=== PATIENT | male | born 1950 | race Caucasian/White ===

== ENCOUNTER 2016-04-25 21:05 | Emergency (ER) | payer BC ==
[~2016-04-25] VITALS: Ht 175.3 cm; Wt 87.3 kg
[~2016-04-25 21:05] MED LIST: COZAAR 50MG50 MG/TAB PO; LIPITOR20 MG PO; NAPROSYN500 MG PO; NORCO 325 MG-7.1 TAB PO; PRILOSEC10 MG PO; VOLTAREN SR25 MG/TAB PO; XARELTO15 MG PO; ZOCOR40 MG PO
[2016-04-25 21:07] VITALS: TEMP 98.5
[2016-04-25] MEDS ORDERED: ASPIRIN 81M81 MG/TA2 PO (21:10)
[2016-04-25] MEDS ORDERED: FLEXERIL 1010 MG/TAB PO (21:11)
[2016-04-25 22:29] LABS: BASO % 0.9 % (0.0-2.0); EOS # 0.2 (0.0-0.7); EOS % 3.6 % (0-4.0); GRAN # 2.5 (1.4-6.5); GRAN % 56.6 % (42.2-75.2); HEMATOCRIT 42.8 % (42.0-52.0); HEMOGLOBIN 14.9 g/dl (13.5-18.0); LYMPH # 1.3 (1.2-3.4); LYMPH % 29.4 % (20.0-51.0); MEAN CELL VOLUME 89 fl (80.0-100.0); MEAN CORPUSCULAR HEMOGLOBIN 31 pg (27.0-31.0); MEAN CORPUSCULAR HGB CONC 35 g/dl (33.0-37.0); MEAN PLATELET VOLUME 9.9 fl (7.4-10.4); MONO # 0.4 (0.1-0.6); MONO % 8.6 % (1.7-9.3); PLATELET COUNT 143 K/mm3 (130-400); RED BLOOD COUNT 4.82 M/mm3 (4.20-5.60); REDCELL DISTRIBUTION WIDTH-CV 12.4 % (11.5-14.5); WHITE BLOOD COUNT 4.4 K/mm3 (4.8-10.8)
[2016-04-25 22:34] LABS: INR 1.1 (0.8-3.0)
[2016-04-25 22:41] LABS: ADJUSTED CALCIUM 9.1 mg/dL (8.4-10.2); ALBUMIN 4.1 gm/dL (3.5-5.0); BILIRUBIN,TOTAL 1.3 mg/dL (0.0-1.0); CALCIUM 9.2 mg/dL (8.4-10.2); CREATININE, serum 0.96 mg/dL (0.66-1.25); POTASSIUM 3.7 mmol/L (3.4-5.0); TOTAL PROTEIN 7.3 gm/dL (6.4-8.2)
[2016-04-25 23:35] LABS: PH 5 (5-8); SQUAMOUS EPITHELIAL None Seen /hpf; URINE APPEARANCE Clear; URINE BACTERIA None Seen /hpf; URINE BILIRUBIN Negative (NEGATIVE); URINE BLOOD 2+ (NEGATIVE); URINE COLOR Yellow; URINE GLUCOSE Negative (NEGATIVE); URINE KETONE Trace (NEGATIVE); URINE RBC 0-2 /hpf; URINE UROBILINOGEN Negative (NEGATIVE); URINE WBC 0-2 /hpf
[2016-04-26 00:26] VITALS: BP 145/94; PULSE 77
[2016-04-26] MEDS ORDERED: ASPIRIN 32325 MG/TAB PO (10:04)
== END 2016-04-26 00:34 | disposition home or self-care (01) ==
LOC: COL.ER 21:05
PROVIDERS: Emergency Medicine
DX: K92.2 Gastrointestinal hemorrhage, unspecified (principal)
CPT/HCPCS: J7030

== ENCOUNTER 2016-04-26 09:31 | Day surgery (SDC) | payer BC ==
[~2016-04-26] VITALS: Ht 175.3 cm; Wt 89.7 kg
[~2016-04-26 09:31] MED LIST changes: +ASPIRIN 81M81 MG/TA2 PO; +FLEXERIL 1010 MG/TAB PO
[2016-04-26] MEDS ORDERED: ASPIRIN 32325 MG/TAB PO (10:04)
[2016-04-26 10:09] VITALS: BP 146/93; PULSE 82; TEMP 98.1
[2016-04-26 13:00] VITALS: BP 149/99; PULSE 71
[2016-04-26 13:15] VITALS: BP 149/81; PULSE 66
[2016-04-26 13:30] VITALS: BP 146/104; PULSE 65
[2016-04-26 14:49] VITALS: BP 128/86; PULSE 76
== END 2016-04-26 13:35 | disposition home or self-care (01) ==
LOC: SDCO 09:31
DX: R19.5 Other fecal abnormalities (principal); K57.30 Diverticulosis of large intestine without perforation or abscess without bleeding; D12.5 Benign neoplasm of sigmoid colon; K92.2 Gastrointestinal hemorrhage, unspecified; K22.2 Esophageal obstruction; K21.9 Gastro-esophageal reflux disease without esophagitis
CPT/HCPCS: C1726; J2250; J3010; J7030

== ENCOUNTER 2018-01-14 15:30 | Emergency (ER) | payer BC ==
[~2018-01-14] VITALS: Ht 175.3 cm; Wt 87.3 kg
[~2018-01-14 15:30] MED LIST changes: +ASPIRIN 32325 MG/TAB PO
[2018-01-14 15:32] VITALS: TEMP 98.4
[2018-01-14] MEDS ORDERED: LOVENOX 8080 MG/0.8 SQ (18:11)
[2018-01-14 18:29] VITALS: BP 166/70; PULSE 80
== END 2018-01-14 18:30 | disposition home or self-care (01) ==
LOC: COL.ER 15:30
DX: I82.401 Acute embolism and thrombosis of unspecified deep veins of right lower extremity (principal); I10 Essential (primary) hypertension; Z86.711 Personal history of pulmonary embolism; Z79.82 Long term (current) use of aspirin
CPT/HCPCS: J1650

== ENCOUNTER 2018-08-15 12:51 | Inpatient (IN) | payer BC ==
[~2018-08-15] VITALS: Ht 175.3 cm; Wt 89.5 kg
[2018-08-15] VITALS (59 sets, daily range): BP systolic 151–165; BP diastolic 92–105; PULSE 67–72; TEMP 97.5–98.1; O2SAT 91–96
[~2018-08-15 12:51] MED LIST changes: +LOVENOX 8080 MG/0.8 SQ
[2018-08-15 14:29] LABS: BASO % 0.8 % (0.0-2.0); EOS # 0.1 (0.0-0.7); EOS % 0.9 % (0-4.0); GRAN # 3.8 (1.4-6.5); GRAN % 70.7 % (42.2-75.2); HEMATOCRIT 45.8 % (42.0-52.0); HEMOGLOBIN 15.9 g/dl (13.5-18.0); MEAN CELL VOLUME 91 fl (80.0-100.0); MEAN CORPUSCULAR HEMOGLOBIN 32 pg (27.0-31.0); MEAN CORPUSCULAR HGB CONC 35 g/dl (33.0-37.0); MEAN PLATELET VOLUME 9.8 fl (7.4-10.4); MONO # 0.4 (0.1-0.6); MONO % 7.7 % (1.7-9.3); PLATELET COUNT 140 K/mm3 (130-400); RED BLOOD COUNT 5.02 M/mm3 (4.20-5.60)
[2018-08-15 14:33] LABS: INR 1.5 (0.8-3.0); PROTHROMBIN TIME 17.7 SECONDS (9.7-12.8)
[2018-08-15 14:35] LABS: PARTIAL THROMBOPLASTIN TIME 44.3 SECONDS (26.0-37.0)
[2018-08-15 15:22] LABS: ALBUMIN 4.1 gm/dL (3.5-5.0); CALCIUM 9.1 mg/dL (8.4-10.2); CREATININE, serum 0.84 (0.66-1.25); POTASSIUM 4.1 mmol/L (3.4-5.0); TOTAL PROTEIN 7.3 gm/dL (6.4-8.2)
[2018-08-15] MEDS ORDERED: XARELTO20 MG PO (15:37)
[2018-08-15] MEDS ORDERED: LIPITOR 40MG TA40 MG PO (15:38)
[2018-08-15] MEDS ORDERED: AMBIEN 10MG10 MG PO (15:45)
[2018-08-15] MEDS ORDERED: OMEGA-3 1000 MG1 CAP PO (17:06)
--- NOTE | 2018-08-15 19:22 | NUR ---
Report given to Nimco ECHOLS and care transfered.
[2018-08-15 22:13] LABS: HEMATOCRIT 39.1 % (42.0-52.0)
[2018-08-15 22:20] LABS: HEMOGLOBIN 13.7 g/dl (13.5-18.0)
[2018-08-16] VITALS (10 sets, daily range): BP systolic 138–158; BP diastolic 64–94; PULSE 55–72; TEMP 97.2–98.5; O2SAT 93–94
[2018-08-16 05:05] LABS: BASO % 0.5 % (0.0-2.0); EOS # 0.1 (0.0-0.7); EOS % 2.4 % (0-4.0); GRAN # 2.5 (1.4-6.5); GRAN % 59.6 % (42.2-75.2); HEMATOCRIT 37.2 % (42.0-52.0); HEMOGLOBIN 12.8 g/dl (13.5-18.0); LYMPH # 1.1 (1.2-3.4); LYMPH % 26.7 % (20.0-51.0); MEAN CELL VOLUME 92 fl (80.0-100.0); MEAN CORPUSCULAR HEMOGLOBIN 32 pg (27.0-31.0); MEAN CORPUSCULAR HGB CONC 34 g/dl (33.0-37.0); MEAN PLATELET VOLUME 9.8 fl (7.4-10.4); MONO # 0.4 (0.1-0.6); MONO % 10.1 % (1.7-9.3); PLATELET COUNT 126 K/mm3 (130-400); RED BLOOD COUNT 4.04 M/mm3 (4.20-5.60); REDCELL DISTRIBUTION WIDTH-CV 12.9 % (11.5-14.5)
[2018-08-16 05:15] LABS: ALBUMIN 3.3 gm/dL (3.5-5.0); BILIRUBIN,TOTAL 1.2 mg/dL (0.0-1.0); CALCIUM 8.1 mg/dL (8.4-10.2); CREATININE, serum 0.85 (0.66-1.25); TOTAL PROTEIN 5.9 gm/dL (6.4-8.2)
--- NOTE | 2018-08-16 08:00 | NUR ---
Shift assessment complete at this time. Plan of care reviewed at bedside with patient. Additional time taken to address any other needs or concerns. Denies pain or any other discomfort. Vitals stable at this time. Bed in low position, call light within reach, will continue to monitor.
--- NOTE | 2018-08-16 09:24 | NUR ---
SW attended clinical rounds. Patient lives independently at home with his and works timekeeper at the [employer]. Patient's PCP is Dr Newton and he obtains prescriptions from [facility]. Patient is independent with all ADLs. Patient will be tranferred to the surgical floor after his procedure later today. DINA does not anticipate any discharge needs.
--- NOTE | 2018-08-16 12:00 | NUR ---
Pt resting comfortably in bed. Denies pain or any other discomfort. Vitals stable at this time. Will continue to monitor.
--- NOTE | 2018-08-16 12:03 | NUR ---
First visit from the magnetic prospector. No needs right now.
--- NOTE | 2018-08-16 14:00 | NUR ---
Patient arrived to floor at 1350 from [facility], is awake, alert and talking. Lungs are clear to all lobes, respirations are even and non labored. HR is regular. No edema noted to any extremities. Denies having any pain. IV is noted to be in the left forearm, is without redness, swelling or drainage. Gait is steady, is independent in room. Provided ice water and tolerated well. Will call to advance diet per his request. is at bedside.
[2018-08-16 15:43] LABS: HEMATOCRIT 37.3 % (42.0-52.0)
--- NOTE | 2018-08-16 17:05 | NUR ---
Patient discharged to home at 1700, accompanied by to private vehicle. Discharge instructions discussed with understanding. Personal items taken with patient. Staff accompanied to car.
== END 2018-08-16 17:00 | disposition home or self-care (01) | DRG 379 ==
LOC: COL.ER 12:51 → ICU 15:52 → MEDICAL 08-16 14:02
PROVIDERS: Emergency Medicine; Internal Medicine Gastroenterology; Physician Assistant; ADMIT Internal Medicine
PROC: 0DDE8ZX Extraction of Large Intestine, Via Natural or Artificial Opening Endoscopic, Diagnostic (ICD-10-PCS; principal; 2018-08-16 13:00)
DX: K57.31 Diverticulosis of large intestine without perforation or abscess with bleeding (principal); I10 Essential (primary) hypertension; K21.9 Gastro-esophageal reflux disease without esophagitis; D50.0 Iron deficiency anemia secondary to blood loss (chronic); E78.5 Hyperlipidemia, unspecified; M48.00 Spinal stenosis, site unspecified; Z86.718 Personal history of other venous thrombosis and embolism; Z86.711 Personal history of pulmonary embolism; Z79.01 Long term (current) use of anticoagulants
CPT/HCPCS: C9113; G0378; J2704; J7030; J7120

== ENCOUNTER 2023-08-22 11:56 | Day surgery (SDC) | payer BC ==
[2023-08-22] VITALS (9 sets, daily range): BP systolic 153–163; BP diastolic 81–92; PULSE 60–77; TEMP 98.1
[~2023-08-22] VITALS: Ht 172.8 cm; Wt 88.8 kg
[~2023-08-22 11:56] MED LIST changes: +AMBIEN 10MG10 MG PO; +AMOXICILLIN 8751 TAB PO; +CARDIO TAB PO; +HYZAAR 25 MG-101 TAB PO; +LIPITOR 40MG TA40 MG PO; +NATURAL E400 IU PO; +NATURAL FISH1200 MG; +OMEGA-3 1000 MG1 CAP PO; +PERCOCET 325 MG1 TA2 PO; -PRILOSEC10 MG PO; +PRILOTC PO; +PROAIR HFA0.09 MG/AC IH; +PROTONIX 40MG T40 MG PO; +REVATIO20 MG PO; +XARELTO10 MG PO; +XARELTO20 MG PO
[2023-08-22] MEDS ORDERED: 1/2 NS 1,000 ML IV SCH (12:15)
[2023-08-22 12:43] LABS: INR 0.9 (0.8-3.0); PROTHROMBIN TIME 10.4 SECONDS (9.7-12.8)
[2023-08-22 12:45] LABS: HEMOGLOBIN 13.9 g/dl (13.5-18.0); MEAN CELL VOLUME 91 fl (80.0-100.0); MEAN CORPUSCULAR HEMOGLOBIN 32 pg (27-31); MEAN CORPUSCULAR HGB CONC 35 g/dl (33.0-37.0); MEAN PLATELET VOLUME 9.9 fl (7.4-10.4); PARTIAL THROMBOPLASTIN TIME 33.1 SECONDS (26.0-37.0); PLATELET COUNT 154 K/mm3 (130-400); RED BLOOD COUNT 4.41 M/mm3 (4.20-5.60); REDCELL DISTRIBUTION WIDTH-CV 12.6 % (11.5-14.5)
[2023-08-22] MEDS ORDERED: CARDIZEM120 MG PO (12:46)
[2023-08-22] MEDS ORDERED: COZAAR100 MG PO (12:47)
[2023-08-22] MEDS ORDERED: VITAMIN D250 MCG PO (12:48)
[2023-08-22 12:56] LABS: CALCIUM 9.4 mg/dL (8.4-10.2); CREATININE, serum 1.54 mg/dL (0.72-1.25); POTASSIUM 4.2 mEq/L (3.5-4.5)
--- NOTE | 2023-08-22 14:26 | NUR ---
SEE MERGE FOR PROCEDURE DOCUMENTATION
[2023-08-22] MEDS ORDERED: Bivalirudin 250 MG in NS 50 ML IV SCH (14:43)
[2023-08-22] MEDS ORDERED: Heparin 1,000 UNITS/ML 10 ML Multi-Dose VIAL IA SCH (14:45)
[2023-08-22] MEDS ORDERED: Heparin 1,000 UNITS/ML 10 ML Multi-Dose VIAL IV SCH (14:46)
[2023-08-22] MEDS ORDERED: Nitroglycerin 100 MCG/ML (Cath Lab) 10 ML VIAL IA SCH (14:47)
[2023-08-22] MEDS ORDERED: Verapamil 2.5 MG/ML 2 ML VIAL IA SCH (14:48)
[2023-08-22] MEDS ORDERED: fentaNYL 50 MCG/ML 2 ML VIAL IV SCH (14:53)
[2023-08-22] MEDS ORDERED: Midazolam 2 MG/2 ML VIAL IV SCH (14:54)
[2023-08-22] MEDS ORDERED: Iohexol 350 - 100 ML VIAL INCOR ONE (14:57)
--- NOTE | 2023-08-22 15:20 | NUR ---
PATIENT TOLERATED PROCEDURE WELL, DENIES PAIN OR NAUSEA. PATIENT TRANSFERRED TO BED INDEPENDENTLY VIA SLIDE AND TRANSPORTED TO [facility] 10. SPOUSE BROUGHT TO BEDSIDE AND PLAN OF CARE REVIEWED. VITAL SIGNS TAKEN, VSS. RIGHT RADIAL SITE REMAINS CDI. PATIENT PROVIDED CALL LIGHT, BED TO LOWEST POSITION, X3 BEDRAILS IN PLACE. TRANSFER OF CARE TO ONESIMO ELAINE.
[2023-08-22] MEDS ORDERED: IMDUR 60MG60 MG/TAB PO (15:34)
--- NOTE | 2023-08-22 17:58 | NUR ---
PT TOLERATED RECOVERY PERIOD WELL. VS REMAINED WITHIN NORMAL LIMITS AND PT VERBALIZED UNDERSTANDING OF DISCHARGE INSTRUCTIONS. PT'S RIGHT RADIAL DRESSING REMAINED CLEAN DRY AND INTACT AND PT REMAINED FREE FROM SIGNS OF BLEEDING AND HEMATOMA. PT ASSISTED TO MAIN LOBBY VIA WHEELCHAIR AND IV DISCONTINUED. PT FREE FROM ACUTE CONCERNS AND COMPLAINTS UPON DISCHARGE.
== END 2023-08-22 17:59 | disposition home or self-care (01) ==
LOC: COL.CAR 11:56
PROVIDERS: Internal Medicine Cardiovascular Disease
DX: I25.10 Atherosclerotic heart disease of native coronary artery without angina pectoris (principal); I12.9 Hypertensive chronic kidney disease with stage 1 through stage 4 chronic kidney disease, or unspecified chronic kidney disease; N18.32 Chronic kidney disease, stage 3b; E78.00 Pure hypercholesterolemia, unspecified; Z86.711 Personal history of pulmonary embolism; Z86.718 Personal history of other venous thrombosis and embolism; Z95.5 Presence of coronary angioplasty implant and graft; Z79.01 Long term (current) use of anticoagulants; Z79.899 Other long term (current) drug therapy; Z85.828 Personal history of other malignant neoplasm of skin
CPT/HCPCS: C1725; C1769; C1887; J0583; J1644; J2250; J3010; Q9967